=== PATIENT | male | born 1960 | race Caucasian/White ===

== ENCOUNTER 2016-12-22 15:57 | Outpatient (CLI) | payer OTHER ==
[2016-12-22 16:43] LABS: eGFR (African) > 60; eGFR (Non-African) > 60
== END 2016-12-22 16:00 ==
LOC: LAB 15:57 → EDBD 15:57 → LAB 16:00
PROVIDERS: ATTEND Family Medicine
DX: R73.9 Hyperglycemia, unspecified (principal); E78.5 Hyperlipidemia, unspecified; N52.9 Male erectile dysfunction, unspecified
CPT/HCPCS: 36415; 80053; 80061; 83036; 84403; 86803

== ENCOUNTER 2017-01-12 08:34 | Outpatient (CLI) | payer OTHER | END 2017-01-12 08:35 | LOC: OUT 08:34 | PROVIDERS: ATTEND Family Medicine | DX: E11.65 Type 2 diabetes mellitus with hyperglycemia (principal) | CPT/HCPCS: G0270 ==

== ENCOUNTER 2017-07-10 07:46 | Outpatient (CLI) | payer SELFPAY | END 2017-07-10 07:47 | LOC: LAB 07:46 | PROVIDERS: ATTEND Family Medicine | DX: E11.9 Type 2 diabetes mellitus without complications (principal) | CPT/HCPCS: 36415; 83036 ==

== ENCOUNTER 2018-02-01 09:04 | Outpatient (CLI) | payer SELFPAY | END 2018-02-01 09:05 | LOC: LAB 09:04 | PROVIDERS: ATTEND Family Medicine | DX: E11.9 Type 2 diabetes mellitus without complications (principal) | CPT/HCPCS: 36415; 83036 ==

== ENCOUNTER 2019-05-19 14:59 | Outpatient (CLI) | payer OTHER ==
[2019-05-19 16:10] LABS: A1C 7.6 % (<5.7)
[2019-05-19 16:19] LABS: HDL 35 mg/dL (>40); eGFR (Non-African) > 60
== END 2019-05-19 15:05 ==
LOC: LAB 14:59
PROVIDERS: ATTEND Family Medicine
DX: E11.9 Type 2 diabetes mellitus without complications (principal); Z79.4 Long term (current) use of insulin
CPT/HCPCS: 36415; 80053; 80061; 82043; 83036